=== PATIENT | female | born 1990 | race Asian ===

== ENCOUNTER 2017-03-27 00:19 | Inpatient (IN) | payer SELFPAY ==
[~2017-03-27] VITALS: Ht 165.1 cm; Wt 65.8 kg
[2017-03-27] MEDS ORDERED: NALBUPHINE 10 MG/ML AMP IVP PRN (01:05)
[2017-03-27] MEDS ORDERED: OXYTOCIN 10 UNITS/ML VIAL IM ONE (01:05)
[2017-03-27] MEDS ORDERED: PROMETHAZINE 25 MG/ML VIAL IVP PRN ×2 (01:05→01:10)
[2017-03-27] MEDS ORDERED: OXYTOCIN 20 UNITS in LACTATED RINGERS 1,000 ML IV SCH (01:05)
[2017-03-27] MEDS ORDERED: MISOPROSTOL 25 MCG TAB VG SCH (01:05)
[2017-03-27 01:26] LABS: MONOCYTES # (AUTO) 0.5 K/uL (0.8-1.0)
[2017-03-27 01:28] LABS: BASOPHILS # (AUTO) 0.1 K/uL (0.00-0.22); BASOPHILS % (AUTO) 1.3 % (0.0-2.0); EOSINOPHILS % (AUTO) 0.5 % (0.0-4.0); HEMATOCRIT 34.2 % (36-48); HEMOGLOBIN 11.5 g/dL (12.0-16.0); LYMPHOCYTES # (AUTO) 1.7 K/uL (2.5-16.5); LYMPHOCYTES % (AUTO) 27.2 % (20.5-51.1); MEAN CORPUSCULAR HEMOGLOBIN 29 pg (27-31); MEAN CORPUSCULAR HGB CONC 34 g/dL (33-37); MEAN CORPUSCULAR VOLUME 85 fL (80-94); MONOCYTES % (AUTO) 8.2 % (1.7-9.3); NEUTROPHILS # (AUTO) 3.8 K/uL (1.8-7.7); NEUTROPHILS % (AUTO) 62.8 % (42.2-75.2); PLATELET COUNT (AUTO) 177 K/uL (140-450); RED BLOOD CELL COUNT(AUTO) 4.03 MIL/uL (4.20-5.40); RED CELL DISTRIBUTION WIDTH 13.7 % (11.6-13.7); WHITE BLOOD COUNT (AUTO) 6.1 K/uL (4.8-10.8)
[2017-03-27] MEDS: LACTATED RINGERS 1,000 ML IV SCH ×2 (01:50→04:16)
[2017-03-27 02:17] VITALS: BP 109/63
[2017-03-27] MEDS ORDERED: INFLUENZA VIRUS VACCINE QUAD 0.5 ML SYR IMVAC SCH (02:20)
[2017-03-27] MEDS ORDERED: ROPIVACAINE 0.2%/NS PREMIX 250 ML EPI ONE (04:32)
[2017-03-27 06:40] LABS: APPEARANCE,URINE CLEAR (CLEAR); BILIRUBIN,URINE NEGATIVE (NEGATIVE); BLOOD, URINE NEGATIVE (NEGATIVE); COLOR,URINE YELLOW (YELLOW); LEUKOCYTE ESTERASE ,URINE NEGATIVE (NEGATIVE); NITRITE, URINE NEGATIVE (NEGATIVE); UGLUCOSE NEGATIVE (NEGATIVE)
--- NOTE | 2017-03-27 08:53 | NUR ---
PATIENT HAS BEEN SCREENED AND CATEGORIZED LOW RISK. PATIENT WILL BE SEEN WITHIN 7 DAYS OF ADMISSION. 04/02/[address]
[2017-03-27] MEDS ORDERED: OXYTOCIN 10 UNITS/ML VIAL ONE (12:51)
[2017-03-27] MEDS ORDERED: METHYLERGONOVINE 0.2 MG TAB PO PRN (13:25)
[2017-03-27] MEDS ORDERED: oxyCODONE/APAP 5/325 MG 1 TAB TAB PO PRN (13:25)
[2017-03-27] MEDS ORDERED: TEMAZEPAM 15 MG CAP PO PRN (13:25)
[2017-03-27] MEDS ORDERED: METHYLERGONOVINE 0.2 MG/ML AMP IM PRN (13:25)
[2017-03-27] MEDS ORDERED: BENZOCAINE/MENTHOL 20%-0.5% 60 GM CAN TP PRN (13:25)
[2017-03-27] MEDS ORDERED: MEASLES, MUMPS, AND RUBELLA 1 VIAL SQVAC PRN (13:25)
[2017-03-27] MEDS ORDERED: SODIUM PHOSPHATE 118 ML ENEM RC PRN (13:25)
[2017-03-27] MEDS ORDERED: HYDROcodone/APAP 5/325 MG 1 TAB TAB PO PRN (13:25)
[2017-03-27] MEDS: IBUPROFEN 800 MG TAB PO PRN ×2 (15:43→20:02)
[2017-03-27] MEDS ORDERED: IBUPROFEN 800 MG TAB ONE (15:50)
[2017-03-27] MEDS ORDERED: DOCUSATE SOD/SENNA 50/8.6 MG 1 TAB PO SCH (21:00)
[2017-03-28 06:57] LABS: RAPID PLASMA REAGIN NON-REACTIVE (Non Reactiv)
[2017-03-28 06:59] LABS: HEMATOCRIT 32.4 % (36-48); HEMOGLOBIN 10.7 g/dL (12.0-16.0)
[2017-03-29] MEDS ORDERED: IBUP-2218 PO (08:25)
== END 2017-03-29 15:20 | disposition home or self-care (01) | DRG 775 ==
LOC: MLD 00:19 → MFCC 15:55
PROVIDERS: ADMIT Obstetrics & Gynecology; ATTEND Obstetrics & Gynecology
PROC: 10E0XZZ Delivery of Products of Conception, External Approach (ICD-10-PCS; principal; 2017-03-27)
PROC: 10907ZC Drainage of Amniotic Fluid, Therapeutic from Products of Conception, Via Natural or Artificial Opening (ICD-10-PCS; 2017-03-27)
PROC: 00HU33Z Insertion of Infusion Device into Spinal Canal, Percutaneous Approach (ICD-10-PCS; 2017-03-27)
PROC: 3E0R3BZ Introduction of Anesthetic Agent into Spinal Canal, Percutaneous Approach (ICD-10-PCS; 2017-03-27)
PROC: 3E0234Z Introduction of Serum, Toxoid and Vaccine into Muscle, Percutaneous Approach (ICD-10-PCS; 2017-03-28)
PROC: 3E0234Z Introduction of Serum, Toxoid and Vaccine into Muscle, Percutaneous Approach (ICD-10-PCS; 2017-03-28)
DX: O89.4 Spinal and epidural anesthesia-induced headache during the puerperium (principal); Z23 Encounter for immunization; Z37.0 Single live birth; Z3A.39 39 weeks gestation of pregnancy
CPT/HCPCS: 36415; 51702; 59409; 81003; 85018; 85025; 86592; 86886; 86900; 86901; 90658; 90715; J2590; J2795; J7120